=== PATIENT | female | born 1980 | race Caucasian/White ===

== ENCOUNTER 2020-01-24 10:34 | Emergency (ER) | payer MEDICARE, MEDICAID, SELFPAY ==
[2020-01-24 10:53] VITALS: BP 110/54; PULSE 86; RESP 20; TEMP 36.8; O2SAT 98; BMI 37.8
--- NOTE | 2020-01-24 11:16 | ED_ITS ---
HPI - Back Pain/Injury General Chief Complaint: Back Pain/Injury Stated Complaint: flank pain Time Seen by Provider: 01/24/20 11:13 Source: patient Mode of arrival: ambulatory History of Present Illness HPI Narrative: 39-YEAR-OLD FEMALE WITH NO SIGNIFICANT PAST MEDICAL HISTORY PRESENTING TO THE ED COMPLAINING OF BILATERAL LOW/MID BACK PAIN X2. DENIES RADIATION OF PAIN, HOWEVER ADMITS PAIN SUBSIDES AFTER URINATION. LMP 10/21/2019. DENIES NAUSEA/VOMITING, ABDOMINAL PAIN, DYSURIA/HEMATURIA, VAGINAL BLEEDING OR DISCHARGE, URINARY INCONTINENCE/RETENTION, FALLS/INJURY MD elicited complaint: back pain Related Data Home Medications Medication Instructions Recorded Confirmed dextroamphetamine-amphetamine 30 30 mg PO DAILY 01/01/20 01/01/20 mg tablet methadone 10 mg/5 mL oral solution 80 mg PO DAILY ml 01/01/20 01/01/20 Previous Rx's Medication Instructions Recorded clonidine HCl 0.1 mg tablet 0.1 mg PO TID 30 Days #90 tab 01/01/20 hydroxyzine pamoate 50 mg capsule 50 mg PO TID 30 Days #90 cap 01/01/20 mirtazapine 15 mg tablet 15 mg PO BEDTIME 30 Days #30 tab 01/01/20 quetiapine 100 mg tablet 100 mg PO BEDTIME 30 Days #30 tab 01/01/20 acetaminophen [Tylenol Extra 500 mg PO Q6H PRN #20 tab 01/24/20 Strength] cyclobenzaprine 5 mg PO Q8H PRN 5 Days #14 tab 01/24/20 lidocaine [Lidoderm] 1 patch TOPICAL DAILY PRN #30 ea 01/24/20 MDD remove after 12 hours naproxen 500 mg PO BID PRN 10 Days #20 tab 01/24/20 Allergies Allergy/AdvReac Type Severity Reaction Status Date / Time amoxicillin [AMOXICILLIN] Allergy Mild RASH, Verified 01/01/20 17:45 Rash/Throat Swelling mold [MOLD] Allergy Mild UNKNOWN Verified 01/01/20 17:45 apple Allergy Unknown unknown Verified 01/01/20 17:45 banana Allergy Unknown unknown Verified 01/01/20 17:45 benztropine Allergy Unknown redness Verified 01/01/20 17:45 and itching egg Allergy Unknown unknown Verified 01/01/20 17:45 kezia [KEZIA] Allergy Unknown GI UPSET Verified 01/01/20 17:45 grape Allergy Unknown unknown Verified 01/01/20 17:45 nut - unspecified [NUTS] Allergy Unknown MOUTH Verified 01/01/20 17:45 ITCHINESS peach Allergy Unknown unknown Verified 01/01/20 17:45 wheat [WHEAT] Allergy Unknown GI UPSET Verified 01/01/20 17:45 strawberry Allergy unknown Verified 01/01/20 17:45 haloperidol [Haldol] AdvReac Unknown unknown Verified 01/01/20 17:45 Review of Systems Review of Systems: Constitutional: No Weight loss, No Fever, No Chills Gastrointestinal: No Nausea, No Vomiting, No Diarrhea, No Constipation, No Abdominal pain Genitourinary: No Dysuria, No Urinary Frequency, No Hematuria, No Urinary Incontinence, +b/l Flank Pain Musculoskeletal: +back pain, No Myalgias, No Joint Swelling Skin: No Skin Lesions, No rash Neuro: No Weakness, No Numbness, No Paresthesias Yes all other systems are reviewed and are negative Neurologic: Denies Sensory deficit (Neuro) [facility] Past Medical History Attestation statement: The following information was validated with the patient. Surgical History (Updated 01/01/20 @ 09:41 by Shantel Chambers [facility]) History of tonsillectomy and adenoidectomy Family History Family History Father Hypertension Kidney malignancy Substance abuse Mother Rheumatoid arthritis HLA B27 positive Maternal Grandmother No problems noted. Maternal Grandfather Stroke Diabetes Social History Social History (Updated 01/02/20 @ 07:41 by Pedro Ross PA-C) Alcohol intake: former Smoking Status: Never smoker Use of substances other than those prescribed or required for medical reasons: No Substance Use Type: Opiates Advance Directives: No Advance Directives Information Provided: Yes Physical Exam Vital Signs: Vital Signs: Last Vital Signs Temp 98.3 F 01/24/20 10:53 Pulse 73 01/24/20 13:19 Resp 16 01/24/20 13:19 BP 101/52 L 01/24/20 13:19 Pulse Ox 96 01/24/20 13:19 Body Mass Index 37.8 Const: General: cooperative and healthy appearing Orientation/consciousness: patient oriented x3 Limitations: no limitations HENMT: Head: Yes normal to inspection Ears: hearing grossly normal bilaterally General nose exam: Normal external nose present Face and sinus: Yes normal facial exam Eyes: General: appearance normal, both eyes and all related structures EOM: EOMs intact bilaterally Neck: Neck: Yes normal visual inspection Resp: Effort & Inspection: normal respiratory effort GI: Inspection: Yes normal to inspection Palpation (GI): Soft to palpation, nontender, no guarding and not rigid : General: Yes CVA tenderness bilateral Back/Spine/Pelvis: Other: No midline cervical/thoracic/lumbar spinous tenderness. + lower thoracic/upper lumbar MSK TTP. No deformity Back: CVA tenderness Skin: Rashes: no rashes Wounds: no wounds Neuro: Other: No saddle anesthesia, ambulating with steady gait General: patient oriented x3 Gait exam (Neuro): Normal gait present Motor exam (neuro): 5/5 motor strength present throughout Sensory Exam: No Sensory deficit (Neuro) Extrem: General: Yes normal to inspection Course Course Course Narrative: --H&H lower than baseline, patient denies hematuria, bloody stools AST/ALT elevated, beta quant negative, UA negative > pain likely musculoskeletal. Imaging results discussed with patient including worrisome signs and symptoms and strict return precautions. She verbalized understanding feel safe for discharge home MDM - Back Pain/Injury MDM Narrative Medical decision making narrative: 39-YEAR-OLD FEMALE WITH NO SIGNIFICANT PAST MEDICAL HISTORY PRESENTING TO THE ED COMPLAINING OF BILATERAL LOW/MID BACK PAIN X2. ON EXAM VSS, NAD/WELL-APPEARING, NO MIDLINE SPINOUS TENDERNESS THROUGHOUT, NO RED FLAG SYMPTOMS OR SADDLE ANESTHESIA. + BILATERAL UPPER LUMBAR/LOWER THORACIC MSK TTP. CONCERN FOR VS MSK PAIN VS RENAL STONE/PYELO OR UTI. LOW CONCERN FOR APPENDICITIS/DIVERTICULITIS/CAUDA EQUINA OR CORD COMPRESSION PLAN: LABS, UA, Lab Data Result diagrams: 01/24/20 11:27 01/24/20 11:27 Labs: Lab Results 01/24/20 01/24/20 01/24/20 Range/Units 11:13 11:27 11:27 WBC 8.7 (4.8-10.8) X10*3/uL RBC 4.21 (4.20-5.50) X10*6/uL Hgb 11.5 L (12.0-16.0) g/dl Hct 35.0 L (37-47) % MCV 83.1 (80-98) fL MCH 27.3 (27.0-33.0) pg MCHC 32.9 (31.0-35.0) g/dl RDW 13.4 (11.0-16.0) % Plt Count 337 (160-400) X10*3/uL MPV 8.5 L (9.4-12.3) fL Immature Gran % (Auto) 0.5 H (0.0-0.4) % Neut % (Auto) 54.9 (45-73) % Lymph % (Auto) 33.8 (20-40) % Carver % (Auto) 6.8 (2-11) % Eos % (Auto) 3.7 (0-4) % Baso % (Auto) 0.3 (0-2) % Lymph # (Auto) 3.0 (1.2-4.9) X10*3/uL Carver # (Auto) 0.6 (0.1-1.2) X10*3/uL Eos # (Auto) 0.3 (0.0-0.4) X10*3/uL Baso # (Auto) 0.0 (0.0-0.2) X10*3/uL Abs Immat Gran (auto) 0.04 H (0.00-0.03) X10*3/uL Absolute Neuts (auto) 4.8 (2.0-8.3) X10*3/uL Absolute Nucleated RBC 0.000 (0.0-0.012) X10*3/uL Nucleated RBC % (auto) 0.0 (0.0-0.2) /100WBC Hold Blue Top Sodium 139 (135-145) mmol/L Potassium 4.4 (3.3-5.1) mmol/l Chloride 103 (96-108) mmol/L Carbon Dioxide 31 H (22-29) mmol/L Anion Gap 9 L (12-20) BUN 11 (9-16) mg/dL Creatinine 0.84 (0.5-1.4) mg/dL Estim Creat Clear Calc 94.0 Estimated GFR > 60 Random Glucose 110 (60-115) mg/dL Calcium 9.0 (8.4-10.2) mg/dL Total Bilirubin (0.0-1.0) mg/dL Direct Bilirubin (0.0-0.5) mg/dL AST (5-31) U/L ALT (0-31) U/L Alkaline Phosphatase (39-117) U/L Total Protein (6.5-8.0) g/dL Albumin (3.5-5.0) g/dL Beta HCG, Quant mIU/mL Urine Color Urine Appearance Urine pH (5.0-8.0) Ur Specific [place] (1.005-1.025) Urine Protein (NEG-TRACE) MG/DL Urine Glucose (UA) (NEG) MG/DL Urine Ketones (NEG) MG/DL Urine Blood (NEG) Urine Nitrite (NEG) Ur Leukocyte Esterase (NEG) Urine Test NEGATIVE (NEGATIVE) 01/24/20 01/24/20 01/24/20 Range/Units 11:27 11:27 11:27 WBC (4.8-10.8) X10*3/uL RBC (4.20-5.50) X10*6/uL Hgb (12.0-16.0) g/dl Hct (37-47) % MCV (80-98) fL MCH (27.0-33.0) pg MCHC (31.0-35.0) g/dl RDW (11.0-16.0) % Plt Count (160-400) X10*3/uL MPV (9.4-12.3) fL Immature Gran % (Auto) (0.0-0.4) % Neut % (Auto) (45-73) % Lymph % (Auto) (20-40) % Carver % (Auto) (2-11) % Eos % (Auto) (0-4) % Baso % (Auto) (0-2) % Lymph # (Auto) (1.2-4.9) X10*3/uL Carver # (Auto) (0.1-1.2) X10*3/uL Eos # (Auto) (0.0-0.4) X10*3/uL Baso # (Auto) (0.0-0.2) X10*3/uL Abs Immat Gran (auto) (0.00-0.03) X10*3/uL Absolute Neuts (auto) (2.0-8.3) X10*3/uL Absolute Nucleated RBC (0.0-0.012) X10*3/uL Nucleated RBC % (auto) (0.0-0.2) /100WBC Hold Blue Top SEE NOTE Sodium (135-145) mmol/L Potassium (3.3-5.1) mmol/l Chloride (96-108) mmol/L Carbon Dioxide (22-29) mmol/L Anion Gap (12-20) BUN (9-16) mg/dL Creatinine (0.5-1.4) mg/dL Estim Creat Clear Calc Estimated GFR Random Glucose (60-115) mg/dL Calcium (8.4-10.2) mg/dL Total Bilirubin 0.3 (0.0-1.0) mg/dL Direct Bilirubin < 0.2 (0.0-0.5) mg/dL AST 63 H (5-31) U/L ALT 105 H (0-31) U/L Alkaline Phosphatase 81 (39-117) U/L Total Protein 6.2 L (6.5-8.0) g/dL Albumin 3.9 (3.5-5.0) g/dL Beta HCG, Quant < 2 mIU/mL Urine Color Urine Appearance Urine pH (5.0-8.0) Ur Specific [place] (1.005-1.025) Urine Protein (NEG-TRACE) MG/DL Urine Glucose (UA) (NEG) MG/DL Urine Ketones (NEG) MG/DL Urine Blood (NEG) Urine Nitrite (NEG) Ur Leukocyte Esterase (NEG) Urine Test (NEGATIVE) 01/24/20 Range/Units 11:33 WBC (4.8-10.8) X10*3/uL RBC (4.20-5.50) X10*6/uL Hgb (12.0-16.0) g/dl Hct (37-47) % MCV (80-98) fL MCH (27.0-33.0) pg MCHC (31.0-35.0) g/dl RDW (11.0-16.0) % Plt Count (160-400) X10*3/uL MPV (9.4-12.3) fL Immature Gran % (Auto) (0.0-0.4) % Neut % (Auto) (45-73) % Lymph % (Auto) (20-40) % Carver % (Auto) (2-11) % Eos % (Auto) (0-4) % Baso % (Auto) (0-2) % Lymph # (Auto) (1.2-4.9) X10*3/uL Carver # (Auto) (0.1-1.2) X10*3/uL Eos # (Auto) (0.0-0.4) X10*3/uL Baso # (Auto) (0.0-0.2) X10*3/uL Abs Immat Gran (auto) (0.00-0.03) X10*3/uL Absolute Neuts (auto) (2.0-8.3) X10*3/uL Absolute Nucleated RBC (0.0-0.012) X10*3/uL Nucleated RBC % (auto) (0.0-0.2) /100WBC Hold Blue Top Sodium (135-145) mmol/L Potassium (3.3-5.1) mmol/l Chloride (96-108) mmol/L Carbon Dioxide (22-29) mmol/L Anion Gap (12-20) BUN (9-16) mg/dL Creatinine (0.5-1.4) mg/dL Estim Creat Clear Calc Estimated GFR Random Glucose (60-115) mg/dL Calcium (8.4-10.2) mg/dL Total Bilirubin (0.0-1.0) mg/dL Direct Bilirubin (0.0-0.5) mg/dL AST (5-31) U/L ALT (0-31) U/L Alkaline Phosphatase (39-117) U/L Total Protein (6.5-8.0) g/dL Albumin (3.5-5.0) g/dL Beta HCG, Quant mIU/mL Urine Color YELLOW Urine Appearance HAZY Urine pH 5.5 (5.0-8.0) Ur Specific [place] 1.025 (1.005-1.025) Urine Protein NEG (NEG-TRACE) MG/DL Urine Glucose (UA) NEG (NEG) MG/DL Urine Ketones NEG (NEG) MG/DL Urine Blood NEG (NEG) Urine Nitrite NEG (NEG) Ur Leukocyte Esterase NEG (NEG) Urine Test (NEGATIVE) Discharge Plan Discharge Clinical Impression: Thoracic back pain, Lumbar back pain Patient Disposition: Home, Self-Care Instructions: Back Pain (ED) Additional Instructions: Your blood work and imaging studies were unremarkable Your pain is likely musculoskeletal Flexeril is a muscle relaxer, take at night as it makes you drowsy, do not drive, drink alcohol, or operate machinery while taking it Naproxen as an anti-inflammatory / pain medication, take with food Lidoderm patches are numbing patches, apply to painful area In addition take Tylenol at home If symptoms persist or worsen, pain becomes unbearable, you developed urinary retention or incontinence, or weakness return to the ED Prescriptions: New acetaminophen [Tylenol Extra Strength] 500 mg tablet 500 mg PO Q6H PRN (Reason: pain or fever) Qty: 20 RF: 0 lidocaine [Lidoderm] 5 % adhesive patch,medicated 1 patch topical DAILY MDD remove after 12 hours PRN (Reason: pain) Qty: 30 RF: 0 cyclobenzaprine 5 mg tablet 5 mg PO Q8H PRN (Reason: pain (scale score 7-10)) 5 Days Qty: 14 RF: 0 naproxen 500 mg tablet 500 mg PO BID PRN (Reason: pain) 10 Days Qty: 20 RF: 0 No Action methadone 10 mg/5 mL solution 80 mg PO DAILY RF: 0 dextroamphetamine-amphetamine [Adderall] 30 mg tablet 30 mg PO DAILY RF: 0 quetiapine [Seroquel] 100 mg tablet 100 mg PO BEDTIME 30 Days Qty: 30 RF: 1 mirtazapine 15 mg tablet 15 mg PO BEDTIME 30 Days Qty: 30 RF: 1 hydroxyzine pamoate [Vistaril] 50 mg capsule 50 mg PO TID 30 Days Qty: 90 RF: 1 clonidine HCl 0.1 mg tablet 0.1 mg PO TID 30 Days Qty: 90 RF: 1 Referrals: Pedro Ross PA-C [Primary Care Provider] - 2 days
[2020-01-24 11:32] LABS: UPreg QC Valid YES
[2020-01-24 11:33] LABS: Urine Pregnancy NEGATIVE (NEGATIVE)
[2020-01-24 11:34] LABS: MANUAL DIFF FLAG NO
[2020-01-24 11:42] LABS: Basophils Percent Auto 0.3 % (0-2); Eosinophils Absolute Auto 0.3 X10*3/uL (0.0-0.4); Eosinophils Percent Auto 3.7 % (0-4); Hemoglobin 11.5 g/dl (12.0-16.0); Imm Gran Abs Auto 0.04 X10*3/uL (0.00-0.03); Imm Gran Pct Auto 0.5 % (0.0-0.4); Lymphocytes Percent Auto 33.8 % (20-40); Mean Corpuscular HGB Conc 32.9 g/dl (31.0-35.0); Mean Corpuscular Hemoglobin 27.3 pg (27.0-33.0); Mean Corpuscular Volume 83.1 fL (80-98); Mean Platelet Volume 8.5 fL (9.4-12.3); Monocytes Absolute Auto 0.6 X10*3/uL (0.1-1.2); Monocytes Percent Auto 6.8 % (2-11); Neutrophils Absolute Auto 4.8 X10*3/uL (2.0-8.3); Neutrophils Percent Auto 54.9 % (45-73); Platelet Count 337 X10*3/uL (160-400); Red Blood Count 4.21 X10*6/uL (4.20-5.50); Red Cell Distribution Width 13.4 % (11.0-16.0); White Blood Count 8.7 X10*3/uL (4.8-10.8)
[2020-01-24] MEDS: Acetaminophen 325 MG TABLET 650 MG PO (11:44)
[2020-01-24 11:45] VITALS: BP 114/63; PULSE 79; RESP 16; O2SAT 97
[2020-01-24 12:18] LABS: Alanine Aminotransferase 105 U/L (0-31); Albumin Level 3.9 g/dL (3.5-5.0); Alkaline Phosphatase 81 U/L (39-117); Anion Gap 9 (12-20); Aspartate Amino Transferase 63 U/L (5-31); Bilirubin Direct < 0.2 mg/dL (0.0-0.5); Bilirubin Total 0.3 mg/dL (0.0-1.0); Blood Urea Nitrogen 11 mg/dL (9-16); Carbon Dioxide 31 mmol/L (22-29); Chloride 103 mmol/L (96-108); Estimated Glomerular Filt Rate > 60; Glucose Random 110 mg/dL (60-115); HCG Quantitative < 2 mIU/mL; Potassium 4.4 mmol/l (3.3-5.1); Sodium 139 mmol/L (135-145); Total Protein 6.2 g/dL (6.5-8.0)
[2020-01-24 12:48] LABS: Glucose Urine UA NEG (NEG); Leukocyte Esterase Urine NEG (NEG); Nitrite Urine NEG (NEG); PH 5.5 (5.0-8.0); Specific Gravity - Urine 1.025 (1.005-1.025); Urine Blood NEG (NEG); Urine Ketones NEG (NEG); Urine Protein NEG (NEG-TRACE)
[2020-01-24 12:50] LABS: Appearance Urine HAZY; Color Urine YELLOW
[2020-01-24 13:19] VITALS: BP 101/52; PULSE 73; RESP 16; O2SAT 96
[2020-01-24] MEDS: Cyclobenzaprine HCl 5 MG TABLET PO (13:47)
[2020-01-24] MEDS: Ketorolac Tromethamine 15 MG/ML VIAL IM (13:47)
== END 2020-01-24 13:55 | disposition home or self-care (01) ==
PROVIDERS: Physician Assistant; Emergency Provider Emergency Medicine; PCP Physician Assistant
DX: M54.6 Pain in thoracic spine (principal); M54.5 Low back pain; Z79.899 Other long term (current) drug therapy
CPT/HCPCS: 36415; 80048; 80076; 81003; 81025; 84702; 85025; 87086; 96372; 99284; J1885

== ENCOUNTER 2022-10-29 09:58 | Emergency (ER) | payer MEDICARE, MEDICAID, SELFPAY ==
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
[2022-10-29 10:05] VITALS: BP 100/56; PULSE 55; RESP 18; TEMP 36.9; O2SAT 98; BMI 22.7
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
[2022-10-29] MEDS: Ibuprofen 800 MG TABLET PO (11:19)
== END 2022-10-29 12:03 | disposition home or self-care (01) ==
PROVIDERS: Emergency Provider Emergency Medicine Emergency Medical Services; PCP Family Medicine
DX: S80.212A Abrasion, left knee, initial encounter (principal); V03.10XA Pedestrian on foot injured in collision with car, pick-up truck or van in traffic accident, initial encounter; Y93.01 Activity, walking, marching and hiking; Y92.414 Local residential or business street as the place of occurrence of the external cause; Y99.9 Unspecified external cause status
CPT/HCPCS: 73560; 99283; 99284